=== PATIENT | female | born 1985 | race Caucasian/White ===

== ENCOUNTER → 2020-09-26 | Outpatient (CLI) | payer OTHER ==
[~2020-09-26] MED LIST: PREDNISONE20 M1 PO; ZYRTEC ALLERGY10 MG PO
== END ==
LOC: LAB 14:19
DX: J02.9 Acute pharyngitis, unspecified (principal)

== ENCOUNTER 2021-02-10 19:02 | Emergency (ER) | payer OTHER ==
[2021-02-10] MEDS ORDERED: ZYRTEC ALLERGY10 MG PO (19:48)
[2021-02-10 20:25] LABS: BASO # 0.02 (0.02-0.10); EOS # 0.48 (0.04-0.40); EOS % 5.7 % (1.0-5.0); HEMATOCRIT 40.5 % (37.0-47.0); HEMOGLOBIN 13.6 g/dL (12.5-16.0); LYMPH# 1.25 (1.50-4.00); MEAN CELL VOLUME 93 fl (78-100); MEAN CORPUSCULAR HEMOGLOBIN 31 pg (27-31); MEAN CORPUSCULAR HGB CONC 34 g/dL (33-37); MEAN PLATELET VOLUME 9.4 fl (7.4-10.4); MONO # 0.62 (0.20-0.80); NEU # 6.11 (1.40-6.50); PLATELET COUNT 268 K/mm3 (130-400); RED BLOOD COUNT 4.36 M/mm3 (4.10-5.30); RED CELL DISTRIBUTION WIDTH 12.3 % (11.5-14.5); WHITE BLOOD COUNT 8.5 K/mm3 (4.8-10.8)
[2021-02-10] MEDS ORDERED: PREDNISONE20 M1 PO (20:56)
[2021-02-10 21:47] VITALS: BP 117/58
== END 2021-02-10 21:47 | disposition home or self-care (01) ==
LOC: ED 19:02
PROVIDERS: Family Medicine
DX: J45.909 Unspecified asthma, uncomplicated (principal); H01.009 Unspecified blepharitis unspecified eye, unspecified eyelid; H10.10 Acute atopic conjunctivitis, unspecified eye

== ENCOUNTER → 2021-11-07 | Outpatient (CLI) | payer OTHER ==
[2021-11-07 16:30] LABS: BASO # 0.01 K/mm3 (0.02-0.10); EOS # 0.45 K/mm3 (0.04-0.40); EOS % 6.6 % (1.0-5.0); HEMATOCRIT 41.5 % (37.0-47.0); HEMOGLOBIN 13.9 g/dL (12.5-16.0); LYMPH# 1.35 K/mm3 (1.50-4.00); MEAN CELL VOLUME 92 fl (78-100); MEAN CORPUSCULAR HEMOGLOBIN 31 pg (27-31); MEAN CORPUSCULAR HGB CONC 34 g/dL (33-37); MEAN PLATELET VOLUME 9.6 fl (7.4-10.4); MONO # 0.52 K/mm3 (0.20-0.80); NEU # 4.48 K/mm3 (1.40-6.50); PLATELET COUNT 240 K/mm3 (130-400); RED BLOOD COUNT 4.49 M/mm3 (4.10-5.30); RED CELL DISTRIBUTION WIDTH 12.4 % (11.5-14.5); WHITE BLOOD COUNT 6.8 K/mm3 (4.8-10.8)
[2021-11-07 16:36] LABS: POTASSIUM 3.8 mmol/L (3.5-5.1)
[2021-11-07 16:37] LABS: ALBUMIN 4.4 g/dL (3.5-5.0)
[2021-11-07 16:38] LABS: CALCIUM 9.3 mg/dL (8.3-10.5)
[2021-11-07 16:39] LABS: TOTAL PROTEIN 7.1 g/dL (6.4-8.3)
[2021-11-07 16:41] LABS: TOTAL BILIRUBIN 0.2 mg/dL (0.2-1.2)
== END ==
LOC: LAB 16:00
PROVIDERS: Internal Medicine
DX: Z00.00 Encounter for general adult medical examination without abnormal findings (principal)